=== PATIENT | female | born 2000 ===

== ENCOUNTER 2020-07-11 16:16 | Outpatient (CLI) | payer OTHER ==
[~2020-07-11] VITALS: Ht 170.2 cm; Wt 79.1 kg
[2020-07-11 16:18] VITALS: BP 129/55; Ht 170.2 cm; Wt 79.1 kg
== END 2020-07-11 18:45 | disposition home or self-care (01) ==
LOC: D.ER 16:16 → D.LDO 16:16 → EDSTATUS 17:02 → D.LDO 18:45
PROVIDERS: ATTEND Obstetrics & Gynecology
DX: O26.899 Other specified pregnancy related conditions, unspecified trimester (principal); Z3A.00 Weeks of gestation of pregnancy not specified; M54.5 Low back pain; V89.2XXA Person injured in unspecified motor-vehicle accident, traffic, initial encounter